=== PATIENT | male | born 1970 | race African-American/Black ===

== ENCOUNTER 2017-04-13 10:16 | Emergency (ER) | payer SELFPAY ==
[~2017-04-13] VITALS: Ht 177.8 cm; Wt 88.0 kg
[~2017-04-13 10:16] MED LIST: AUGM875T PO
[2017-04-13 10:19] VITALS: BP 115/65; PULSE 75; RESP 18; TEMP 98.6; O2SAT 97
[2017-04-13 10:57] VITALS: BP 130/67; PULSE 66; RESP 22; O2SAT 100
[2017-04-13] MEDS ORDERED: SODIUM CHLOR 0.9% 1000 ML INJ 1,000 ML IV ONE (11:31)
--- NOTE | 2017-04-13 11:36 | PD ---
HPI Chief Complaint: Seizure Time Seen by Provider: 11:23 Travel History International Travel<30 days: No Contact w/Intl Traveler<30days: No Traveled to known affect area: No History of Present Illness HPI 47-year-old male presents to the emergency department for evaluation of syncope versus seizure that occurred this morning. Patient states he went to the bathroom when he fell to the ground. He states his stated he had some shaking when he fell. He does not recall. He no incontinence or biting of his tongue. He does state that he was able to get up and use the bathroom after this activity. Patient states that he feels fine at this time. No headache. No visual changes. No chest pain or short of breath. No abdominal pain. No nausea, vomiting, diarrhea. No weakness, paresthesias, anesthesias. Patient states this happened once last year around January. He had a Holter monitor and was told that he had no abnormalities. He did slightly low potassium at a time , 3.3. Patient has not followed up since. He denies any episodes between January of last year and today. Patient has no chronic medical problems and takes no prescribed medications. He reports occasional alcohol use, no tobacco or illicit drug use. Patient denies any cardiac history. He denies any significant family cardiac history. PFSH Past Medical History Medical other: Yes (LOW K+) Past Surgical History Surgical History: No Previous Surgery Social History Alcohol Use: Yes (OCCU) Tobacco Use: No Substance Use: No Allergies-Medications (Allergen,Severity, Reaction): Coded Allergies: No Known Allergies (Unverified , 04/13/17) Reported Meds & Prescriptions Reported Meds & Active Scripts Active Augmentin 875 mg Tab (Amoxicillin & Pot Clavulanate 875 mg Tab) 875 Mg Tab 1 Tab PO BID Review of Systems Except as stated in HPI: all other systems reviewed are Neg Physical Exam Narrative GENERAL: Well-nourished, well-developed male patient, afebrile. SKIN: Focused skin assessment warm/dry. No lacerations or abrasions. HEAD: Normocephalic. Atraumatic. ENT: Mucosa pink and moist. No erythema or exudates. No uvular edema. No uvular , palatal, or tonsillar deviation. Airway patent. Nasal turbinates appear normal without nasal blood, purulent drainage or septal hematoma. Bilateral tympanic membranes are clear without erythema or perforation. EYES: No scleral icterus. No injection or drainage. NECK: Supple, trachea midline. No JVD or lymphadenopathy. CARDIOVASCULAR: Regular rate and rhythm without murmurs, gallops, or rubs. RESPIRATORY: Breath sounds equal bilaterally. No accessory muscle use. Lungs sounds are clear to auscultation. GASTROINTESTINAL: Abdomen soft, non-tender, nondistended. MUSCULOSKELETAL: No cyanosis, or edema. BACK: Nontender without obvious deformity. No CVA tenderness. NEUROLOGICAL: Awake and alert. Cranial nerves II through XII intact. Motor and sensory grossly within normal limits. Five out of 5 muscle strength in all muscle groups. Normal speech. Finger to nose is normal bilaterally. Heel-to- barreto is normal bilaterally. Data Data Last Documented VS Vital Signs Date Time Temp Pulse Resp B/P (MAP) Pulse Ox O2 Delivery O2 Flow Rate FiO2 04/13/17 12:20 60 115/66 (82) 69 112/64 (80) 117/68 (84) 04/13/17 11:54 99 04/13/17 10:57 22 Room Air 04/13/17 10:19 98.6 Orders Orders Electrocardiogram (04/13/17 11:31) Complete Blood Count With Diff (04/13/17 11:31) Comprehensive Metabolic Panel (04/13/17 11:31) Magnesium (Mg) (04/13/17 11:31) Ckmb (Isoenzyme) Profile (04/13/17 11:31) Troponin I (04/13/17 11:31) Ct Brain W/O Iv Contrast(Rout) (04/13/17 11:31) Ecg Monitoring (04/13/17 11:31) Iv Access Insert/Monitor (04/13/17 11:31) Oximetry (04/13/17 11:31) Sodium Chloride 0.9% Flush (Ns Flush) (04/13/17 11:45) Sodium Chlor 0.9% 1000 Ml Inj (Ns 1000 M (04/13/17 11:31) Orthostatic Vital Signs (04/13/17 11:31) CKMB (04/13/17 11:44) CKMB% (04/13/17 11:44) Labs Laboratory Tests Test 04/13/17 11:44 White Blood Count 6.0 TH/MM3 Red Blood Count 4.10 MIL/MM3 Hemoglobin 13.2 GM/DL Hematocrit 40.1 % Mean Corpuscular Volume 98.0 FL Mean Corpuscular Hemoglobin 32.2 PG Mean Corpuscular Hemoglobin Concent 32.8 % Red Cell Distribution Width 14.3 % Platelet Count 249 TH/MM3 Mean Platelet Volume 6.7 FL Neutrophils (%) (Auto) 66.2 % Lymphocytes (%) (Auto) 25.3 % Monocytes (%) (Auto) 6.0 % Eosinophils (%) (Auto) 2.0 % Basophils (%) (Auto) 0.5 % Neutrophils # (Auto) 4.0 TH/MM3 Lymphocytes # (Auto) 1.5 TH/MM3 Monocytes # (Auto) 0.4 TH/MM3 Eosinophils # (Auto) 0.1 TH/MM3 Basophils # (Auto) 0.0 TH/MM3 CBC Comment DIFF FINAL Differential Comment Blood Urea Nitrogen 10 MG/DL Creatinine 0.89 MG/DL Random Glucose 88 MG/DL Total Protein 7.1 GM/DL Albumin 3.2 GM/DL Calcium Level 8.9 MG/DL Magnesium Level 1.9 MG/DL Alkaline Phosphatase 71 U/L Aspartate Amino Transf (AST/SGOT) 19 U/L Alanine Aminotransferase (ALT/SGPT) 29 U/L Total Bilirubin 0.3 MG/DL Sodium Level 140 MEQ/L Potassium Level 4.1 MEQ/L Chloride Level 107 MEQ/L Carbon Dioxide Level 26.2 MEQ/L Anion Gap 7 MEQ/L Estimat Glomerular Filtration Rate 112 ML/MIN Total Creatine Kinase 352 U/L Creatine Kinase MB 3.1 NG/ML Creatine Kinase MB % 0.9 % Troponin I LESS THAN 0.02 NG/ML MDM Medical Decision Making Medical Screen Exam Complete: Yes Emergency Medical Condition: Yes Medical Record Reviewed: Yes Interpretation(s) CT of the brain - CONCLUSION: 1. No acute intracranial abnormality. 2. Chronic pansinus disease. Differential Diagnosis Seizure versus syncope versus electrolyte abnormality versus intracranial abnormality versus ACS Narrative Course 47 year old male presents to the emergency department for possible seizure versus syncope. This happened January of last year as well. He has not had any follow-up. He does appear well on exam. EKG, CBC, CMP, magnesium, CK, troponin , orthostatic vital signs are ordered and pending. CT of the brain is ordered and pending. Patient is given normal saline 1 L IV bolus. EKG shows sinus rhythm, heart rate 66, no acute ST changes. CBC shows no acute abnormality. CMP is unremarkable. Magnesium is 1.9. CK is 352. Troponin is less than 0.02. Orthostatic VS are negative for orthostatic hypotension. CT of the brain shows no acute intracranial abnormality; chronic pansinus disease. Laboratory and imaging is reassuring. Patient is instructed to follow up with his primary care physician. [facility] is [facility]. He is return here for any acute worsening of symptoms. My attending physician, Dr. Pugh, is aware of all findings agrees with plan and disposition. The patient was discharged in stable condition with instructions, including return instructions and follow up instructions. Diagnosis Primary Impression: Syncope Qualified Codes: R55 - Syncope and collapse Referrals: [facility] call for appointment Patient Instructions: General Instructions, Syncope (ED) Additional Instructions: Follow up with [facility]. Return to the emergency department for any acute, worsening of symptoms. Med/Other Pt SpecificInfo: No Change to Meds Disposition: 01 DISCHARGE HOME Condition: Stable Belia Wise Apr 13, 2017 11:36
[2017-04-13] MEDS ORDERED: SODIUM CHLORIDE 0.9% FLUSH 10 ML FLUSH IVF PRN (11:45)
[2017-04-13 11:54] VITALS: PULSE 66; O2SAT 99
[2017-04-13 11:57] LABS: BASOPHIL % 0.5 % (0.0-2.0); EOSINOPHIL # 0.1 TH/MM3 (0-0.4); HEMATOCRIT 40.1 % (39.0-51.0); HEMO FLAGS DIFF FINAL; LYMPH % 25.3 % (9.0-44.0); LYMPHOCYTE # 1.5 TH/MM3 (1.0-4.8); MEAN CORPUSCULAR HEMOGLOBIN 32.2 PG (27.0-34.0); MEAN CORPUSCULAR HGB CONC 32.8 % (32.0-36.0); NEUT % 66.2 % (16.0-70.0); PLATELET COUNT 249 TH/MM3 (150-450); RED CELL DISTRIBUTION WIDTH 14.3 % (11.6-17.2)
--- NOTE | 2017-04-13 12:16 | RADRPT ---
EXAM DATE/TIME: 04/13/2017 11:57 [place] COMPARISON: CT BRAIN W/O CONTRAST, February 19, 2016, 9:08. INDICATIONS : Fall with possible seizure. RADIATION DOSE: 34.12 CTDIvol (mGy) MEDICAL HISTORY : ETOH; low potassium in the past. SURGICAL HISTORY : ENCOUNTER: Initial ACUITY: 1 day PAIN SCALE: 0/10 LOCATION: cranial TECHNIQUE: Multiple contiguous axial images were obtained of the head. Using automated exposure control and adj ustment of the mA and/or kV according to patient size, radiation dose was kept as low as reasonably a chievable to obtain optimal diagnostic quality images. DICOM format image data is available electro nically for review and comparison. FINDINGS: CEREBRUM: The ventricles are normal for age. No evidence of midline shift, mass lesion, hemorrhage or acute in farction. No extra-axial fluid collections are seen. POSTERIOR FOSSA: The cerebellum and brainstem are intact. The 4th ventricle is midline. The cerebellopontine angle i s unremarkable. EXTRACRANIAL: The visualized portion of the orbits is intact. Mucosal thickening throughout the visualized paranasa l sinuses. Most pronounced involving the left side. Mastoid air cells are clear. SKULL: The calvaria is intact. No evidence of skull fracture. CONCLUSION: 1. No acute intracranial abnormality. 2. Chronic pansinus disease. Chuy Eddy Jr., MD on April 13, 2017 at 12:13 Board Certified Radiologist. This report was verified electronically.
[2017-04-13 12:20] VITALS: BP_SYST 112; BP_SYST 115; BP_SYST 117; BP_DIAS 64; BP_DIAS 66; BP_DIAS 68
--- NOTE | 2017-04-13 12:20 | PD ---
Physical Exam Date Seen by Provider: Apr 13, 2017 Narrative Patient presents for the evaluation of an apparent seizure versus syncopal episode. Data Data Last Documented VS Vital Signs Date Time Temp Pulse Resp B/P (MAP) Pulse Ox O2 Delivery O2 Flow Rate FiO2 04/13/17 11:54 66 99 04/13/17 10:57 22 Room Air 04/13/17 10:19 98.6 Orders Orders Electrocardiogram (04/13/17 11:31) Complete Blood Count With Diff (04/13/17 11:31) Comprehensive Metabolic Panel (04/13/17 11:31) Magnesium (Mg) (04/13/17 11:31) Ckmb (Isoenzyme) Profile (04/13/17 11:31) Troponin I (04/13/17 11:31) Ct Brain W/O Iv Contrast(Rout) (04/13/17 11:31) Ecg Monitoring (04/13/17 11:31) Iv Access Insert/Monitor (04/13/17 11:31) Oximetry (04/13/17 11:31) Sodium Chloride 0.9% Flush (Ns Flush) (04/13/17 11:45) Sodium Chlor 0.9% 1000 Ml Inj (Ns 1000 M (04/13/17 11:31) Orthostatic Vital Signs (04/13/17 11:31) Labs Laboratory Tests Test 04/13/17 11:44 White Blood Count 6.0 TH/MM3 Red Blood Count 4.10 MIL/MM3 Hemoglobin 13.2 GM/DL Hematocrit 40.1 % Mean Corpuscular Volume 98.0 FL Mean Corpuscular Hemoglobin 32.2 PG Mean Corpuscular Hemoglobin Concent 32.8 % Red Cell Distribution Width 14.3 % Platelet Count 249 TH/MM3 Mean Platelet Volume 6.7 FL Neutrophils (%) (Auto) 66.2 % Lymphocytes (%) (Auto) 25.3 % Monocytes (%) (Auto) 6.0 % Eosinophils (%) (Auto) 2.0 % Basophils (%) (Auto) 0.5 % Neutrophils # (Auto) 4.0 TH/MM3 Lymphocytes # (Auto) 1.5 TH/MM3 Monocytes # (Auto) 0.4 TH/MM3 Eosinophils # (Auto) 0.1 TH/MM3 Basophils # (Auto) 0.0 TH/MM3 CBC Comment DIFF FINAL Differential Comment MDM Supervised Visit with AGUSTINA: Yes Narrative Course I, Dr. Pugh, have reviewed the advance practice practitioner's documentation and am in agreement, met with the patient face to face, made the diagnosis, and the medical decision making was done by me. *My assessment and Findings: Patient is now awake and alert and oriented 3. He has no focal neurological findings. Please see Belia Wise, WALLPAPER INSPECTOR's note for laboratory and radiology results, final diagnosis and disposition Christelle Pugh MD Apr 13, 2017 12:20
[2017-04-13 12:44] LABS: ANION GAP 7 MEQ/L (5-15); AST (GOT) 19 U/L (15-37); BICARBONATE 26.2 MEQ/L (21.0-32.0); BLOOD UREA NITROGEN 10 MG/DL (7-18); CHLORIDE 107 MEQ/L (98-107); GLOMERULAR FILTRATION RATE 112 ML/MIN (>89); MAGNESIUM 1.9 MG/DL (1.5-2.5); POTASSIUM 4.1 MEQ/L (3.5-5.1); SODIUM (NA) 140 MEQ/L (136-145)
[2017-04-13 12:45] LABS: ALT (GPT) 29 U/L (12-78)
[2017-04-13 12:49] LABS: ALKALINE PHOSPHATASE 71 U/L (45-117); CREATINE KINASE 352 U/L (39-308); TOTAL BILIRUBIN ADULT 0.3 MG/DL (0.2-1.0)
[2017-04-13 13:01] LABS: CKMB 3.1 NG/ML (0.5-3.6)
[2017-04-13 13:27] VITALS: BP 120/74; PULSE 65; RESP 18; O2SAT 100
--- NOTE | 2017-04-14 13:20 | EKG ---
Date Performed: 04/13/2017 Time Performed: 11:51:33 PTAGE: 47 years EKG: Sinus rhythm When compared to previous tracing, sinus rate has increased. NORMAL ECG PREVIOUS TRACING : 02/19/2016 08.30.28 DOCTOR: Davy Fung Interpretating Date/Time 04/14/2017 13:19:31
== END 2017-04-13 14:05 | disposition home or self-care (01) ==
LOC: NEPD 10:16
DX: R55 Syncope and collapse (principal)
CPT/HCPCS: 70450; 80053; 82550; 82552; 83735; 84484; 85025; 93005; 96360; 96361; 99285; J7030